=== PATIENT | female | born 2000 | race Two or more races ===

== ENCOUNTER 2025-02-18 20:01 | Emergency (ER) | payer MEDICAID, SELFPAY ==
[2025-02-18 20:02] VITALS: BMI 34.5
[2025-02-18 20:25] VITALS: BP 110/79; PULSE 98; RESP 18; TEMP 37.5; O2SAT 97
[2025-02-18 21:23] LABS: Influenza A Ag Negative; Influenza B Ag Negative; Strep A Rapid Negative (Negative)
[2025-02-18 21:24] LABS: COVID-19 Antigen (In-House) Negative (Negative)
--- NOTE | 2025-02-18 23:06 | EDNOTE_ITS ---
ED Dental RME/HPI General Chief complaint: Dental/Oral/Throat Stated complaint: SORE THROAT Time Seen by Provider: 02/18/25 20:05 Arrival date/time: 02/18/25 20:01 This is a case of 24-year-old female with history of asthma came in in the emergency room due to sore throat on and off for 3 days associated with cough and low-grade fever denies any shortness of breath wheezing nasal congestion or chills persistence of the symptoms this patient decided to sought consult here in the emergency room Limitations: no limitations Related Data Home Medications ?Medication ?Instructions ?Recorded ?Confirmed vits [id number] fum 1 tab PO QDAY 0 11/03/19 27 mg iron-folic acid 800 mcg tablet ( Vitamin) Previous Rx's ?Medication ?Instructions ?Recorded ibuprofen 600 mg tablet 600 mg PO Q6HR PRN PAIN #20 tabs 10/21/13 albuterol sulfate 90 mcg/actuation 2 puff inhalation Q 6H PRN 11/05/19 aerosol inhaler (Proventil HFA) shortness of breath or wheezing #18 grams ferrous sulfate 325 mg (65 mg 325 mg PO BID #60 tabs 0 11/05/19 iron) tablet hydrocodone 5 mg-acetaminophen 325 1 tab PO Q4H PRN pa in #30 tabs 11/05/19 mg tablet ibuprofen 800 mg tablet 800 mg PO Q6H PRN pain #30 t abs 11/05/19 albuterol sulfate 90 mcg/actuation 2 puff inhalation Q 6H PRN 02/18/25 aerosol inhaler (Ventolin HFA) shortness of breath or wheezing #8.5 grams clarithromycin 500 mg tablet 500 mg PO BID 10 days #20 tabs 02/18/25 lidocaine HCl 2 % mucosal solution 10 ml PO Q4HR PRN s ore throat #100 02/18/25 (Lidocaine Viscous) mL prednisone 20 mg tablet See Taper PO QDAY 5 days #5 tabs 02/18/25 Allergies Allergy/AdvReac Type Severity Reaction Status Date / Time Penicillins Allergy Unknown Verified 02/18/25 20:06 iodine Allergy Verified 02/18/25 20:06 Contrast Media Allergy Intermediate Rash Uncoded 02/18/25 20:06 Review of Systems Review of Systems Systems Reviewed: All systems reviewed, normal except as documented Constitutional Constitutional: Reports system reviewed and no additional complaints, except as documented and Reports as per HPI ENT Ears, Nose, Mouth, and Throat: Reports system reviewed and no additional complaints, except as documented and Reports as per HPI Cardiovascular Cardiovascular: Reports system reviewed and no additional complaints, except as documented and Reports as per HPI Respiratory Respiratory: Reports system reviewed and no additional complaints, except as do cumented and Reports as per HPI Musculoskeletal Musculoskeletal: Reports system reviewed and no additional complaints, except as documented and Reports as per HPI Neurologic Neurologic: Reports system reviewed and no additional complaints, except as documented and Reports as per HPI Past Medical History Past Medical History NEUROLOGIC: Negative Neurological Disorders or Seizures CARDIAC: Negative Cardiac Disorders or Congestive Heart Failure RESPIRATORY: Positive Asthma; Negative Chronic Obstructive Pulmonary Disease (COPD) GASTROINTESTINAL: Negative Gastrointestinal Disorders, Hepatitis or Colorectal Cancer GENITOURINARY: Negative Genitourinary Disorders, Renal Disease or Prostate Cancer REPRODUCTIVE: Negative Breast Cancer or Testicular Cancer MUSCULOSKELETAL: Negative Musculoskeletal Disorders or Bone Cancer ENDOCRINE: Negative Endocrine Disorders, Diabetes Mellitus Type 1 or Diabetes Mellitus Type 2 HEMATOLOGIC: Positive Anemia; Negative Blood Disorders OTHER HISTORY: Negative Hospitalization, Autoimmune Disease, Down Syndrome, D evelopmental Delay, Shingles, Falls, Blood Transfusions, Blood Transfusion Reaction, Anesthesia Reactions, Organ Transplant, Chemotherapy, Radiation Therapy, Hyperbaric Therapy, MRSA, VRSA, Vancomycin-Resistant Enterococci, Human Immunodeficiency Virus (HIV), Chicken Pox, Measles, Mumps, Rubella (English Measles), Pertussis, Clostridium Difficile, Cancer, Breast Cancer, Cervical Cancer, Colorectal Cancer, Lung Cancer, Ovarian Cancer, Prostate Cancer or Testicular Cancer Family History FAMILY HISTORY: Negative Family Psychiatric Problems, Family Respiratory Disorders, Family Cardiac Disorders, Family Gastrointestinal Problems, Family Cancer, Family Surgery or Family Anesthesia Reaction Surgical History SURGICAL: Negative Section or Organ Transplant Social History SMOKING STATUS: Never smoker SECOND HAND EXPOSURE: No ED Exam General Limitations: Present no limitations General appearance: Present alert, in no apparent distress and other (Patient is awake alert oriented not in distress nontoxic looking well-hydrated well nourished) Head Head exam: Present atraumatic, normocephalic and normal inspection Eye Eye exam: Present normal appearance, PERRL and EOMI ENT ENT exam: Present normal exam, normal oropharynx, mucous membranes moist and other (Both nose and ears were normal bilateral tonsils were swollen red exudate no peritonsillar masses no drooling of saliva no muffled voice) Neck Neck exam: Present normal inspection, full ROM and trachea midline; Absent tenderness, meningismus, lymphadenopathy or thyromegaly Chest Chest inspection: Present normal inspection and symmetric chest wall rise; Absent tenderness Respiratory Respiratory exam: Present normal lung sounds bilaterally and other (No rhonchi no rales); Absent respiratory distress, wheezes, stridor, accessory muscle use or prolonged expiratory phase Cardiovascular Cardiovascular exam: Present regular rate, normal rhythm and normal heart sounds; Absent bradycardia, tachycardia, irregular rhythm, systolic murmur or diastolic murmur Abdominal Exam Abdominal exam: Present soft and normal bowel sounds; Absent distention, tenderness, guarding, rebound, rigidity, diminished bowel sounds, hyperactive bowel sounds, hypoactive bowel sounds or organomegaly Extremities Exam Extremities exam: Present normal inspection and full ROM Back Exam Back exam: Present normal inspection and full ROM Neurological Exam Neurological exam: Present alert, oriented X3, CN II-XII intact, normal gait and reflexes normal; Absent motor sensory deficit Psychiatric Psychiatric exam: Present normal affect and normal mood Skin Skin exam: Present warm, dry, intact, normal color and other (excellent skin turgor) Course Quality Measures none Orders Category Date Time Status COVID-19 Antigen (In-House) Stat Lab 02/18/25 20:52 Completed Influenza A & B Rapid Panel Stat Lab 02/18/25 20:52 Completed King Screen Stat Lab 02/18/25 20:46 Received Strep A Rapid Stat Lab 02/18/25 20:52 Completed Vital Signs Vital signs: Vital Signs Temperature 99.5 F 02/18/25 20:25 Pulse Rate 98 02/18/25 20:25 Respiratory Rate 18 02/18/25 20:25 Blood Pressure 110/79 02/18/25 20:25 Pulse Oximetry (%) 97 02/18/25 20:25 Oxygen Delivery Method Room Air 02/18/25 20:25 Patient is afebrile not tachycardic not tachypneic BP stable not hypoxic oxygen saturation is 97% in room air Dental / Oral MDM Narrative MDM Narrative:: This is a case of 24-year-old female with history of asthma came in in the emergency room due to sore throat on and off for 3 days associated with cough and low-grade fever denies any shortness of breath wheezing nasal congestion or chills persistence of the symptoms this patient decided to sought consult here in the emergency room physical examination patient is awake alert oriented not in distress nontoxic looking well-hydrated well-nourished excellent skin turgor. Nose and ears were normal bilateral tonsils were swollen red with mild exudate no peritonsillar abscess Centor criteria 1/4 no drooling of saliva no muffled voice lung sounds is clear no crackles no rales no wheezing no retraction no stridor the rest of the physical examination neurological exam is normal and unremarkable patient will be treated as exudative tonsillitis patient was discharged with clarithromycin and prednisone patient was also given Ventolin inhaler for cough and lidocaine viscous for sore throat no signs and symptoms of sepsis dehydration or hypoxia patient will follow-up with PCP in 2 days for reevaluation and for any worsening symptoms or any emergent concern return precaution in the ER is advised Patient was discharged with comfortable condition walking with stable gait. Patient verbalized no further complains explained diagnosis and answered patient question. Patient is comfortable with the proposed management plan including the need to follow up with his/her primary care physician and any specialist if applicable Discussed patient for any urgent condition or worsening sx, He/She needed to go to emergency room immediately or call 911. Patient acknowledge the responsibility to follow up as instructed and to monitor her/his symptoms. For any persistence of the symptoms for more than 3-5 days return precaution advised. Discussed the result of the test and was given printed discharge instruction Patient data External records reviewed:: [facility] previous records Clinical information provided by:: patient Social determinants that could affect healthcare access:: none Patient has the following chronic illnesses:: none How is presenting disease/condition affected by chronic disease/condition?: no chronic disease Evaluation data The following diagnostics were reviewed and interpreted by me:: lab results Lab and/or radiology exams considered but not ordered:: reviewed Interpretation Summary: reviewed Medications / Prescriptions Medications or Prescriptions considered but not ordered:: given Medication administrations:: given Consultations Consultation(s) initiated? (list below): No Diagnosis Most likely diagnosis given after review of the tests above:: tonsillitis Admission Indicated Admission indicated?: not indicated Explain why admission is indicated or not indicated:: not indicated Admission Request Was there a request for admission?: No Admission Attestation Admission request attestation: not indicated Disposition Plan Disposition Plan: Discharge Discharge Attestation Discharge Attestation: The patient and all family members were given an opportunity to ask questions and understood the discharge instructions. Discharge instructions specifically effects, indications for sooner follow up or return to the emergency department, and the expected course of current diagnosis. Patient condition: Stable Discharge Plan Plan Patient Disposition: HOME (Self Care) Patient condition on transfer: Stable Prescriptions/Referrals Prescriptions/Med Rec: New clarithromycin 500 mg tablet 500 mg PO BID 10 Days Qty: 20 0RF prednisone 20 mg tablet See Taper PO QDAY 5 Days Qty: 5 0RF Taper: Prednisone Taper 20 mg DAILY for 2 Days and 0 Hour 10 mg DAILY for 2 Days and 0 Hour 5 mg DAILY for 7 Days and 0 Hour lidocaine HCl [Lidocaine Viscous] 2 % solution 10 ml PO Q4HR PRN (Reason: sore throat) Qty: 100 0RF albuterol sulfate [Ventolin HFA] 90 mcg/actuation HFA aerosol inhaler 2 puff inhalation Q6H PRN (Reason: shortness of breath or wheezing) Qty: 8.5 0RF No Action ibuprofen 600 MG tablet 600 mg PO Q6HR PRN (Reason: PAIN) Qty: 20 0RF Vitamin 27 mg iron- 800 mcg Tablet 1 tab PO QDAY hydrocodone-acetaminophen 5-325 mg tablet 1 tab PO Q4H MDD 5 PRN (Reason: pain) Qty: 30 0RF ferrous sulfate 325 mg (65 mg iron) tablet 325 mg PO BID Qty: 60 1RF ibuprofen 800 mg tablet 800 mg PO Q6H PRN (Reason: pain) Qty: 30 0RF albuterol sulfate [Proventil HFA] 90 mcg/actuation HFA aerosol inhaler 2 puff IH Q6H PRN (Reason: shortness of breath or wheezing) Qty: 18 6RF Referrals: Miguelito Muñiz MD [Primary Care Provider, Family Practice] - In 1 week Problem List Clinical Impression: Fever, Acute tonsillitis, Cough Patient/Caregiver Discharge Instructions Education Materials: Tonsillitis in Adults, ED Cough Chronic Uncertain Cause Adult, ED FUO Adult Additional Instructions: Follow-up with your primary care physician in 2 days for reevaluation worsening symptoms or any emergent concern call 911 or go to the nearest emergency room take your medication as directed finish the course of antibiotic increase water intake keep hydrated warm saline gargle is advised Pedialyte Gatorade for hydration Print Language: Indonesian Stand Alone Forms: Glory Award Info., Patient Portal Info Letter PA/PRESS CATCHER Supervising Physician PA/PRESS CATCHER Supervising Physician: dr guerra
[2025-02-18 23:08] VITALS: RESP 16
[2025-02-19 10:40] LABS: Mono Screen Negative (Negative)
== END 2025-02-18 23:09 | disposition home or self-care (01) ==
PROVIDERS: Nurse Practitioner Family; Emergency Provider Emergency Medicine; PCP Family Medicine
DX: J03.90 Acute tonsillitis, unspecified (principal)
CPT/HCPCS: 36415; 86308; 87502; 87651; 87811; 99281